=== PATIENT | female | born 1995 | race Caucasian/White ===

== ENCOUNTER 2021-02-20 11:14 | Emergency (ER) | payer BC ==
[2021-02-20] MEDS: GI Cocktail Oral Solution 30 ML PO ONE (11:40)
[2021-02-20] MEDS: methylPREDNISolone Sodium Succinate 125 MG/2 ML SDV ONE (12:02)
[2021-02-20] MEDS: methylPREDNISolone Sodium Succinate 125 MG/2 ML SDV IM ONE (12:04)
[2021-02-20] MEDS: Ondansetron 4 MG Tab.DIS ONE (12:39)
[2021-02-20] MEDS: Ondansetron 4 MG Tab.DIS PO ONE (12:40)
--- NOTE | 2021-02-20 14:41 | ER ---
HISTORY OF PRESENT ILLNESS: A 25-year-old lady who is here with complaints of abdominal pain that started earlier today. She has vomited once or twice. She states that the pain is in the upper part of the abdomen and it is severe in nature. She has not had any falls or injuries. She has not been running a fever. She does have a history of IBS and stomach cramps. She has some medicine that she normally takes for, but she forgot it at home. [place] are up here on a camping trip. She denies any problems with constipation or diarrhea. OBJECTIVE: GENERAL APPEARANCE: The patient is awake and alert. No obvious distress. VITAL SIGNS: Reviewed. She is afebrile. Pulse is 50, blood pressure 132/95. LUNGS: Clear. CARDIAC: Heart sounds distinct without murmurs. ABDOMEN: Soft. There is tenderness across the entire upper portion of the abdomen with light palpation. Lower quadrants are just mildly uncomfortable with palpation. Bowel sounds are present and active. SKIN: Warm and dry. INITIAL TREATMENT PLAN: A GI cocktail was given to the patient. This caused her to vomit, but after this she stated that she felt significantly better. LABORATORY DATA: Includes CBC, CMP, UA, and lipase. They are normal. DIAGNOSIS: Abdominal pain/irritable bowel syndrome. TREATMENT PLAN: Solu-Medrol 125 mg was given IM. I will put the patient on an oral prednisone taper as well, 20 mg a day for 2 days, then 10 mg a day for 4 days, then 5 mg a day for 4 days. She is to utilize a soft bland diet and clear liquids to be taken in small frequent amounts. Activity should be minimal today and then increase the activity as tolerated. Followup is with her primary care provider over the next few days. She is to call or come back to the ER as needed if her symptoms should get worse. The patient chose not to have any imaging studies done today and I feel this is reasonable based on her history. CRS/MODL /[id number]
== END 2021-02-20 12:38 | disposition home or self-care (01) ==
LOC: LB.ED 11:14
DX: K58.9 Irritable bowel syndrome, unspecified (principal)
CPT/HCPCS: 36415; 80053; 81001; 83690; 85025; 96372; 99284; A9270-GY; J2930